=== PATIENT | female | born 1950 | race Caucasian/White ===

== ENCOUNTER 2023-11-07 16:09 | Emergency (ER) | payer OTHER ==
[~2023-11-07] VITALS: Ht 162.6 cm; Wt 50.3 kg
[2023-11-07 16:10] VITALS: BP_SYST 174; PULSE 94; RESP 20; TEMP 97.9; O2SAT 99
[2023-11-07] MEDS: cloNIDine HCL 0.1 MG TABLET PO ONE (16:50)
== END 2023-11-07 16:50 ==
LOC: SED 16:09
DX: S60.211A Contusion of right wrist, initial encounter (principal); X58.XXXA Exposure to other specified factors, initial encounter; Y93.89 Activity, other specified; Y92.89 Other specified places as the place of occurrence of the external cause; Y99.8 Other external cause status
CPT/HCPCS: 99283